=== PATIENT | male | born 1980 | race Caucasian/White ===

== ENCOUNTER 2018-01-04 05:50 | Day surgery (SDC) | END 2018-01-04 12:50 | disposition home or self-care (01) ==

== ENCOUNTER 2018-02-28 08:33 | Day surgery (SDC) | END 2018-02-28 17:30 | disposition home or self-care (01) ==

== ENCOUNTER 2018-04-16 16:05 | Emergency (ER) | END 2018-04-16 20:08 | disposition home or self-care (01) ==